=== PATIENT | female | born 2000 | race Caucasian/White ===

== ENCOUNTER 2022-09-07 15:52 | Outpatient (CLI) | payer OTHER ==
[2022-09-07 16:12] LABS: BASOPHILS % (AUTO) 0.5 %; EOSINOPHILS # (AUTO) 0.1 10^3/uL (0.0-0.7); EOSINOPHILS % (AUTO) 0.9 %; HGB - HEMOGLOBIN 13.6 g/dL (12.0-16.0); LYMPHOCYTES # (AUTO) 1.9 10^3/uL (1.5-3.5); LYMPHOCYTES % (AUTO) 22.4 %; MEAN CORPUSCULAR HEMOGLOBIN 30.4 pg (27.0-31.0); MEAN CORPUSCULAR HGB CONC 34.9 g/dL (32.0-36.0); MEAN CORPUSCULAR VOLUME 87.1 fL (81.0-99.0); MEAN PLATELET VOLUME 10.4 fL (7.9-10.8); MONOCYTES # (AUTO) 0.7 10^3/uL (0.0-1.0); MONOCYTES % (AUTO) 7.6 %; NEUTROPHILS # (AUTO) 5.9 10^3/uL (1.5-6.6); NEUTROPHILS % (AUTO) 68.3 %; PLT - PLATELET COUNT 292 10^3/uL (130-450); RED BLOOD COUNT 4.48 10^6/uL (4.20-5.40); RED CELL DISTRIBUTION WIDTH 11.6 % (12.0-15.0); WHITE BLOOD COUNT 8.7 x10^3/uL (4.8-10.8)
[2022-09-08 02:08] LABS: HCV AB Non Reactive (Non Reactive); HIV SCREEN 4TH GENERATION Non Reactive (Non Reactive)
[2022-09-08 06:10] LABS: HBsAG SCREEN Negative (Negative)
[2022-09-08 08:10] LABS: RPR Non Reactive (Non Reactive)
[2022-09-08 10:09] LABS: VARICELLA-ZOSTER AB IGG <135 index (Immune >165)
== END 2022-09-07 15:53 | disposition home or self-care (01) ==
LOC: LAB 15:52
PROVIDERS: ATTEND Nurse Practitioner Obstetrics & Gynecology
DX: Z36.89 Encounter for other specified antenatal screening (principal)
CPT/HCPCS: 36415; 85025; 86592; 86762; 86787; 86803; 86850; 86900; 86901; 87340; 87389

== ENCOUNTER 2022-11-26 07:09 | Outpatient (CLI) | payer OTHER ==
--- NOTE | 2022-11-26 14:27 | Ultrasound Report ---
PROCEDURE: OB Detailed Eval INDICATIONS: SUPERVISION OF OUTSIDE/PRIOR DATING DATA: Last menstrual period (LMP): 06/29/2022. LMP-based estimated date of delivery (LINDEN): 04/05/2023. First dating scan (date and location): 9023. Estimated date of delivery (LINDEN) from first dating scan: 04/09/2023. TECHNIQUE: Real-time scanning was performed of the fetus, with image documentation and biometric measurements. COMPARISON: None. FINDINGS: General: A single living intrauterine gestation is present. Presentation: Vertex Placenta: Placental position is posterior, without previa. Amniotic fluid index: 16.6 cm, within normal limits for gestational age. heart rate: 140 beats per minute. Maternal cervical canal: 3.1 cm long; normal length is 2.5 cm or more. biometrics: Biparietal diameter: 4.8 cm, 20 weeks and 5 days Head circumference: 18.7 cm, 21 weeks and 1 day Abdominal circumference: 16 cm, 21 weeks and 1 day Femur length: 3.5 cm, 21 weeks and 1 day Estimated gestational age from initial scan: 21 weeks and 3 days Composite gestational age from present scan: 20 weeks and 6 days Estimated weight and percentile: 403 g, 30.7 percentile Measurement variability in biometric dating: +/- 10 days from 12-20 weeks gestation, +/- 2 weeks from 20-30 weeks gestation, +/- 3 weeks at 30 weeks gestation or later. Anatomic survey: Neuro: Ventricles are normal at less than 10 mm. Cisterna magna is normal at 3-11 mm. Cerebellum is normal in size and morphology. Nuchal skin fold: Normal at less than 6 mm between 14 and 20 weeks gestational age. Face: Nose and lips, facial profile are normal. Spine: No evidence for spina bifida. Heart: 4-chambered heart is present, with normal ventricular outflow tracts. Incidentally noted lef t ventricle echogenic focus. Diaphragm: Diaphragm is intact. Stomach: Left-sided stomach is present. Kidneys: No hydronephrosis. Normal is less than 5 mm in 2nd trimester, less than 7 mm in 3rd trimester. Cord: 3 vessel cord has orthotopic insertion. Bladder: Normal in size. Extremities: All 4 extremities are visualized. IMPRESSION: Living intrauterine gestation at 21 weeks and 3 days. Biometry is concordant. EFW is at the 31st perc entile. Incidentally noted cardiac left ventricle echogenic focus possibly incidental. Please correlate with maternal risk factors for aneuploidy. Routine anatomic survey otherwise without significant abnormali ty. Reviewed by: Zuhair Roy MD on 11/26/2022 2:25 PM PDT Approved by: Zuhair Roy MD on 11/26/2022 2:25 PM PDT Station ID: [id number]
== END 2022-11-26 07:10 | disposition home or self-care (01) ==
LOC: DI 07:09
PROVIDERS: ATTEND Nurse Practitioner Obstetrics & Gynecology
DX: Z34.00 Encounter for supervision of normal first pregnancy, unspecified trimester (principal); Z36.89 Encounter for other specified antenatal screening

== ENCOUNTER 2022-12-22 09:13 | Outpatient (CLI) | payer OTHER ==
[2022-12-22 10:25] LABS: HCT - HEMATOCRIT 34.6 % (37.0-47.0); HGB - HEMOGLOBIN 11.7 g/dL (12.0-16.0); MEAN CORPUSCULAR HEMOGLOBIN 31.3 pg (27.0-31.0); MEAN CORPUSCULAR HGB CONC 33.8 g/dL (32.0-36.0); MEAN CORPUSCULAR VOLUME 92.5 fL (81.0-99.0); RED BLOOD COUNT 3.74 10^6/uL (4.20-5.40); RED CELL DISTRIBUTION WIDTH 12.1 % (12.0-15.0); WHITE BLOOD COUNT 9.5 x10^3/uL (4.8-10.8)
[2022-12-22 10:43] LABS: ALBUMIN 3.3 g/dL (3.2-5.5); ALBUMIN/GLOBULIN RATIO 1.4 (1.0-2.2); ALKALINE PHOSPHATASE 65 IU/L (42-121); ALT ALANINE AMINOTRANSFERASE 12 IU/L (10-60); AST ASPARTATE AMINOTRANSFERASE 13 IU/L (10-42); BILIRUBIN,TOTAL 0.3 mg/dL (0.2-1.0); BUN - BLOOD UREA NITROGEN 7 mg/dL (6-20); CALCIUM 9.2 mg/dL (8.5-10.3); CARBON DIOXIDE - CO2 26 mmol/L (21-32); CHLORIDE 105 mmol/L (101-111); CHOL/HDL RATIO 2.7 (<4.4); CHOLESTEROL 200 mg/dL; CREATININE 0.5 mg/dL (0.6-1.3); GFR - MDRD 157 (>89); GLUCOSE 110 mg/dL (74-104); GLUCOSE,1H PP 50GM DOSE 110 mg/dL; HDL CHOLESTEROL 73 mg/dL; LDL CHOLESTEROL,CALCULATED 88 mg/dL; LDL/HDL RATIO 1.2 (<4.4); POTASSIUM 3.6 mmol/L (3.5-4.5); SODIUM 137 mmol/L (135-145); TOTAL PROTEIN 5.6 g/dL (6.4-8.9); TRIGLYCERIDES 197 mg/dL (48-352); VLDL CHOLESTEROL 39 mg/dL
== END 2022-12-22 09:14 | disposition home or self-care (01) ==
LOC: LAB 09:13
PROVIDERS: ATTEND Nurse Practitioner Obstetrics & Gynecology
DX: Z01.818 Encounter for other preprocedural examination (principal)
CPT/HCPCS: 36415; 80053; 80061; 82950; 83721; 85027

== ENCOUNTER 2023-03-22 15:23 | Outpatient (CLI) | payer OTHER ==
[2023-03-22 15:39] LABS: BASOPHILS % (AUTO) 0.3 %; EOSINOPHILS # (AUTO) 0.1 10^3/uL (0.0-0.7); EOSINOPHILS % (AUTO) 0.7 %; HCT - HEMATOCRIT 38.7 % (37.0-47.0); HGB - HEMOGLOBIN 12.5 g/dL (12.0-16.0); LYMPHOCYTES % (AUTO) 19.7 %; MEAN CORPUSCULAR HEMOGLOBIN 28.6 pg (27.0-31.0); MEAN CORPUSCULAR HGB CONC 32.3 g/dL (32.0-36.0); MEAN CORPUSCULAR VOLUME 88.6 fL (81.0-99.0); MEAN PLATELET VOLUME 10.7 fL (7.9-10.8); MONOCYTES # (AUTO) 0.6 10^3/uL (0.0-1.0); MONOCYTES % (AUTO) 5.9 %; NEUTROPHILS # (AUTO) 7.4 10^3/uL (1.5-6.6); NEUTROPHILS % (AUTO) 72.9 %; PLT - PLATELET COUNT 303 10^3/uL (130-450); RED BLOOD COUNT 4.37 10^6/uL (4.20-5.40); RED CELL DISTRIBUTION WIDTH 13.2 % (12.0-15.0); WHITE BLOOD COUNT 10.1 x10^3/uL (4.8-10.8)
[2023-03-22 15:57] LABS: ALBUMIN 3.3 g/dL (3.2-5.5); ALBUMIN/GLOBULIN RATIO 1.1 (1.0-2.2); BILIRUBIN,TOTAL 0.4 mg/dL (0.2-1.0); CALCIUM 9.3 mg/dL (8.5-10.3); CREATININE 0.6 mg/dL (0.6-1.3); POTASSIUM 4.2 mmol/L (3.5-4.5); TOTAL PROTEIN 6.4 g/dL (6.4-8.9)
[2023-03-22 16:36] LABS: PROTEIN/CREATININE RATIO,URINE 0.3 (<=0.2)
== END 2023-03-22 15:24 | disposition home or self-care (01) ==
LOC: LAB 15:23
PROVIDERS: ATTEND Nurse Practitioner Obstetrics & Gynecology
DX: R03.0 Elevated blood-pressure reading, without diagnosis of hypertension (principal)
CPT/HCPCS: 36415; 80053; 82570; 84156; 85025

== ENCOUNTER 2023-03-23 15:41 | Inpatient (IN) | payer OTHER ==
[2023-03-23] MEDS ORDERED: OXYTOCIN 10 UNIT/ML VIAL IM PRN (17:05)
[2023-03-23] MEDS ORDERED: TRANEXAMIC ACID IN NACL 1,000 MG/100 ML BAG IV PRN (17:05)
[2023-03-23] MEDS ORDERED: CARBOPROST TROMETHAMINE 250 MCG/ML AMP IM PRN (17:05)
[2023-03-23] MEDS ORDERED: miSOPROStoL 200 MCG TABLET BC PRN (17:05)
[2023-03-23] MEDS ORDERED: SODIUM CHLORIDE FLUSH 0.9% 10 ML SYRINGE IVP PRN (17:05)
[2023-03-23] MEDS ORDERED: lidocaine 1% 20 ML MDV ID PRN (17:05)
[2023-03-23] MEDS ORDERED: METHYLERGONOVINE 0.2 MG/ML VIAL IM PRN (17:05)
[2023-03-23 17:10] LABS: BASOPHILS % (AUTO) 0.5 %; EOSINOPHILS # (AUTO) 0.1 10^3/uL (0.0-0.7); EOSINOPHILS % (AUTO) 0.6 %; HCT - HEMATOCRIT 36.2 % (37.0-47.0); HGB - HEMOGLOBIN 11.7 g/dL (12.0-16.0); LYMPHOCYTES # (AUTO) 1.6 10^3/uL (1.5-3.5); LYMPHOCYTES % (AUTO) 18.6 %; MEAN CORPUSCULAR HEMOGLOBIN 28.3 pg (27.0-31.0); MEAN CORPUSCULAR HGB CONC 32.3 g/dL (32.0-36.0); MEAN CORPUSCULAR VOLUME 87.7 fL (81.0-99.0); MEAN PLATELET VOLUME 10.7 fL (7.9-10.8); MONOCYTES # (AUTO) 0.7 10^3/uL (0.0-1.0); MONOCYTES % (AUTO) 7.4 %; NEUTROPHILS # (AUTO) 6.4 10^3/uL (1.5-6.6); NEUTROPHILS % (AUTO) 72.6 %; PLT - PLATELET COUNT 302 10^3/uL (130-450); RED BLOOD COUNT 4.13 10^6/uL (4.20-5.40); RED CELL DISTRIBUTION WIDTH 13.3 % (12.0-15.0); WHITE BLOOD COUNT 8.8 x10^3/uL (4.8-10.8)
--- NOTE | 2023-03-23 17:14 | HISTORY & PHYSICAL EXAMINATION ---
Admit History - Visit Reason Visit Reason: Other - : 1 Parity: 0 Premature: 0 Ectopic: 0 : 0 Care: positive: [facility] Risk/History: positive: None Complications This : positive: Pre-eclampsia Smoking Status: Never smoker - Mother's Labs Mother's Blood Type: positive: O Mother's RH: positive: Positive GBS: positive: Group B Step Negative Rubella Status: positive: Non-immune - HPI Diagnosis/Indication for NST: Other - NST Procedure FHR baseline 130s, moderate variability, + accels, no decels No contractions appreciated via tocometry Meds/Allgy - Allergies Allergies/Adverse Reactions: Allergies Allergy/AdvReac Type Severity Reaction Status Date / Time No Known Drug Allergies Allergy Verified 03/23/23 15:56 Review of Systems - Constitutional Constitutional: denies: Fatigue, Fever, Chills - Eyes Eyes: denies: Blurred vision, Spots in vision, Dipolpia - Cardiovascular Cariovascular: reports: Edema. denies: Irregular heart rate, Palpitations, Chest pain - Gastrointestinal Gastrointestinal: denies: Constipation, Diarrhea, Nausea, Vomiting - Genitourinary Genitourinary: denies: Dysuria - Integumentary Integumentary: denies: Rash, Pruritis - Neurological Neurological: reports: Headache - Psychiatric Psychiatric: reports: Depression, Anxiety, Other - Hematologic/Lymphatic Hematologic/Lymphatic: denies: Anemia - All Other Systems All Other Systems: reports: Reviewed and negative Physical - Abdominal Exam Contraction Frequency (min/apart): occasional/rare Contraction Intensity: positive: Mild Uterine Resting Tone: positive: Soft - Monitoring Heart Rate Baseline: 135 Strip Review: positive: Category I - Presentation Presentation: positive: Vertex - Vaginal Exam Membranes: positive: Membranes intact Dilation (in cm): fingertip Effacement (%): 30 Station: positive: -3 Cervical Position: positive: Posterior - Speculum Exam Speculum Exam Performed: positive: No Plan for Labor - Plan For Labor I expect patient to be DC'd or transferred within 96 hours.: Yes Plan for Labor: HPI: Hanna Back is a 23yo @ 38.1wks gestation by LMP c/w 10wk U/S who presents to [facility] for medical induction of labor secondary to preeclampsia without severe features. At 24 weeks she was noted to have blood pressure increased from her baseline which did not meet criteria for hypertension however a preeclampsia panel was ordered and normal. Through the duration of her her blood pressure remained 120-130s/70-80s until her routine visit yesterday at which time her blood pressure was 126/91. She presented for another blood pressure evaluation this morning at which time it was 132/92 and met criteria for preeclampsia secondary to her elevated protein/creatinine ratio of 0.3. Her other labs have remained WNL. Of note, her mom was diagnosed with severe preeclampsia. In additional to her preeclampsia diagnosis her has been complicated by mental health difficulties and she was diagnosed with bipolar II disorder by psychiatry at 16 weeks and started on once daily quetiapine. As her dosage was gradually increased she developed side effects of heart palpitations and dizziness. She then decreased her dosage and has remained stable without side effects on her current dosage of 75mg. She will be admitted to [facility] for medical induction of labor. She is supported by her Patel today. Dating criteria: LMP 06/29/2022 --> LINDEN 04/05/2023 Initial U/S @ 10.0wks c/w LMP dating Serial exams - agree maintenance advisor History: Term NSVB x 0. SAB x0. Denies history of gonorrhea, chlamydia, genital herpes, oral herpes or any other STI. Sexual partner does NOT have HSV (oral or genital). Medical Hx: anxiety, migraines, Bipolar II disorder Surgical Hx: L shoulder surgery 2019 Social Hx:Monogamous with male partner Patel. Stopped drinking alcohol due to p regnancy. Denies current use of tobacco, marijuana or other recreational drugs. Reports that she is safe in current relationship. Family Hx: Denies family history of congenital anomalies, Cystic Fibrosis or chromosomal abnormalities. HTN- mother; preeclampsia- mother; bipolar, anxiety/depression - mother. PGM is a twin Allergies: NKDA Medications: PNV, Quetiapine 75mg once daily course: O positive, antibody negative Rubella non-immune, varicella non-immune Hep B neg, Hep C neg HIV non-reactive, RPR non-reactive Initial U/S @ 10.0wks gestation c/w LMP dating NIPS - negative FAS WNL. Incidentally noted cardiac left ventricular echogenic focus. Posterior placenta, no previa. Size c/w dating (EFW 30.7%tile). 3VC. MAGGIE WNL. Glucola 110 Tdap - 02/04/2023 COVID vaccine - declined Influenza -declined RSV - declined GBS negative Physical exam: Normocephalic, atraumatic Heart RRR w/o M/G/R Lungs CTAB Abdomen gravid, soft, nontender EFW 3600g FHR baseline 130s, moderate variability, + accels, no decels Rare/occasional contraction appreciated via tocometry SVE fingertip/30/-3, posterior Vertex with intact membranes [place] cervical ripening balloon placed with 60cc intrauterine and 60cc vaginal balloons Bilateral LE's 2+ pitting edema bilaterally Mood is good Assessment: 23yo @ 38.1wks gestation by LMP c/w 10.0wk U/S Preeclampsia without severe features FHR Category I GBS negative Plan: Admit to [facility] for medical induction of labor secondary to preeclampsia without severe features. Pre-induction cervical ripening with cervical ripening balloon x 12 hours. Continuous monitoring. Jacuzzi PRN. Nitrous oxide PRN. Epidural per maternal request. Discussed with patient and her the criteria for transfer of care to physician care and they verbalized understanding and are in agreement with the above plan. They deny further questions or concerns at this time. Consult with information systems planner physician who is in agreement with the above plan.
[2023-03-23] MEDS ORDERED: LACTATED RINGERS 1,000 ML IV SCH (18:00)
[2023-03-23 18:03] LABS: ALBUMIN 3.1 g/dL (3.2-5.5); ALBUMIN/GLOBULIN RATIO 1.1 (1.0-2.2); BILIRUBIN,TOTAL 0.4 mg/dL (0.2-1.0); CALCIUM 9.5 mg/dL (8.5-10.3); CREATININE 0.6 mg/dL (0.6-1.3); TOTAL PROTEIN 5.9 g/dL (6.4-8.9)
[2023-03-23] MEDS: QUEtiapine 25 MG TABLET PO SCH (22:22)
--- NOTE | 2023-03-24 07:28 | PROVIDER PROGRESS NOTE ---
Labor Progress Note - Uterine Monitoring Uterine Monitoring Mode: positive: External toco Contraction Frequency (min/apart): occasional Contraction Intensity: positive: Mild Uterine Resting Tone: positive: Soft - Monitoring Monitor Mode: positive: External ultrasound Heart Rate Baseline: 145 Heart Rate Variability: positive: Moderate (6-25 bmp) Accelerations: positive: Present, 15x15 Decelerations: positive: None Strip Review: positive: Category I - Vaginal Exam Dilation (in cm): 1 Effacement (%): 50 Station: -3 Cervical Position: Posterior - Labor Progress Note Labor Progress Note/Additional Text: S: Patient was able to sleep intermittently throughout the night last night. She felt some cramping intermittently but it resolved around 0400 this morning. She denies headaches, visual disturbances, RUQ or epigastric pain. Her Patel is supportive at the bedside. O: FHR baseline 140s, moderate variability, + accels, no decels Contractions palpate mild occasionally with soft resting tone Cervical ripening balloon removed without difficulty SVE 1/50/-3, posterior, medium. Vertex. Intact membranes Has remained normotensive throughout the night A: 23yo @ 38.2wks gestation by LMP c/w 9wk U/S Pre-eclampsia without severe features FHR Category I GBS negative P: Initiate misoprostol 50mcg BC q 4 hours for cervical ripening. Continuous monitoring. Jacuzzi PRN, Nitrous oxide PRN. Encouraged ambulation and position changes. Epidural per maternal request. Anticipate .
[2023-03-24] MEDS: miSOPROStoL 100 MCG TABLET BC SCH ×2 (08:35→12:34)
[2023-03-24] MEDS: SODIUM CHLORIDE FLUSH 0.9% 10 ML SYRINGE IVP SCH (14:28)
--- NOTE | 2023-03-24 16:49 | PROVIDER PROGRESS NOTE ---
Labor Progress Note - Uterine Monitoring Uterine Monitoring Mode: positive: External toco Contraction Frequency (min/apart): 3-5 Contraction Intensity: positive: Mild to moderate Uterine Resting Tone: positive: Soft - Monitoring Monitor Mode: positive: External ultrasound Heart Rate Baseline: 150 Heart Rate Variability: positive: Moderate (6-25 bmp) Accelerations: positive: Present, 15x15 Decelerations: positive: None Strip Review: positive: Category I - Vaginal Exam Dilation (in cm): 4 Effacement (%): 70 Station: -2 Cervical Position: Midposition - Labor Progress Note Labor Progress Note/Additional Text: S: Patient is feeling more significant contractions. Continues to be able to talk through them but feels they are more manageable when she is up and around. She has been standing and the bedside and bouncing on her exercise ball. She is feeling very good about her progress thus far. She denies headaches, visual disturbances, RUQ or epigastric pain. Her is supportive at the bedside. O: FHR baseline 120s, moderate variability, + accels, no decels Contractions palpate moderate every 3-5 minutes with soft resting tone SVE 4/70/-2 and vertex with intact membranes S/p 2 doses of 50 mcg BC misoprostol BP has remained normotensive A: 23yo @ 38.2wks gestation by LMP c/w 10wk U/S Preelampsia w/o severe features GBS negative FHR Category I P: Discontinue cervical ripening at this time. Expectantly manage until contractions decrease in intensity and will initiate pitocin with titration per protocol at that time PRN. Intermittent heart rate monitoring. Repeat Preeclampsia labs at 1700. Encouraged ambulation and position changes. Jacuzzi PRN. Nitrous oxide PRN. Epidural per maternal request. Anticipate .
[2023-03-24 17:10] LABS: HCT - HEMATOCRIT 37.8 % (37.0-47.0); HGB - HEMOGLOBIN 12.2 g/dL (12.0-16.0); MEAN CORPUSCULAR HEMOGLOBIN 28.6 pg (27.0-31.0); MEAN CORPUSCULAR HGB CONC 32.3 g/dL (32.0-36.0); MEAN CORPUSCULAR VOLUME 88.5 fL (81.0-99.0); MEAN PLATELET VOLUME 10.7 fL (7.9-10.8); RED BLOOD COUNT 4.27 10^6/uL (4.20-5.40); RED CELL DISTRIBUTION WIDTH 13.4 % (12.0-15.0); WHITE BLOOD COUNT 10.2 x10^3/uL (4.8-10.8)
[2023-03-24 17:26] LABS: ALBUMIN 3.4 g/dL (3.2-5.5); ALBUMIN/GLOBULIN RATIO 1.1 (1.0-2.2); BILIRUBIN,TOTAL 0.3 mg/dL (0.2-1.0); CALCIUM 9.2 mg/dL (8.5-10.3); CREATININE 0.8 mg/dL (0.6-1.3); POTASSIUM 4.2 mmol/L (3.5-4.5); TOTAL PROTEIN 6.5 g/dL (6.4-8.9)
[2023-03-24] MEDS: LACTATED RINGERS 1,000 ML IV PRN ×3 (18:10→22:16)
[2023-03-24] MEDS ORDERED: ROPIVACAINE 0.2% 200 MG/100 ML BAG EP ONE (18:27)
[2023-03-24] MEDS ORDERED: ROPIVACAINE 0.2% 200 MG/100 ML BAG EP PRN (18:57)
[2023-03-24] MEDS ORDERED: ePHEDrine 50 MG/ML VIAL IVP PRN (18:57)
[2023-03-24] MEDS ORDERED: NALOXONE 0.4 MG/ML VIAL IVP PRN (18:57)
--- NOTE | 2023-03-24 18:57 | ANESTHESIA ---
Pre-Anesthesia VS, & Labs - Diagnosis active labor - Procedure vaginal delivery Vital Signs: Temp Pulse Resp BP Pulse Ox O2 Flow Rate 37 C 79 16 117/67 03/23/23 17:14 03/23/23 17:14 03/23/23 17:14 03/23/23 17:14 Height: 5 ft 5 in Weight (kg): 87.22 kg Body Mass Index: 32.0 BMI Classification: Obese - NPO Last Fluid Intake: clear liquids - Is Patient ?: Yes - Lab Results Current Lab Results: Laboratory Tests 03/24/23 17:01: WBC 10.2, RBC 4.27, Hgb 12.2, Hct 37.8, MCV 88.5, MCH 28.6, MCHC 32.3, RDW 13.4, Plt Count 302, MPV 10.7 03/24/23 17:01: Sodium 137, Potassium 4.2, Chloride 106, Carbon Dioxide 23, Anion Gap 8.0, BUN 10, Creatinine 0.8, Estimated GFR (MDRD) 91, Glucose 85, Calcium 9.2, Total Bilirubin 0.3, AST 15, ALT 7 L, Alkaline Phosphatase 184 H, Total Protein 6.5, Albumin 3.4, Globulin 3.1, Albumin/Globulin Ratio 1.1 03/23/23 17:00: Sodium 136, Potassium 4.0, Chloride 107, Carbon Dioxide 21, Anion Gap 8.0, BUN 8, Creatinine 0.6, Estimated GFR (MDRD) 126, Glucose 79, Calcium 9.5, Total Bilirubin 0.4, AST 15, ALT 6 L, Alkaline Phosphatase 162 H, Total Protein 5.9 L, Albumin 3.1 L, Globulin 2.8, Albumin/Globulin Ratio 1.1 03/23/23 17:00: WBC 8.8, RBC 4.13 L, Hgb 11.7 L, Hct 36.2 L, MCV 87.7, MCH 28.3, MCHC 32.3, RDW 13.3, Plt Count 302, MPV 10.7, Neut # (Auto) 6.4, Lymph # (Auto) 1.6, [place] # (Auto) 0.7, Eos # (Auto) 0.1, Baso # (Auto) 0.0, Absolute Nucleated RBC 0.00, Nucleated RBC % 0.0 03/23/23 17:00: Blood Type O POSITIVE, Antibody Screen NEGATIVE Lab results reviewed: Yes Fish Bones: 03/24/23 17:01 03/24/23 17:01 Home Medications and Allergies Active Medications Carboprost Tromethamine (Carboprost Tromethamine 250 Mcg/Ml Amp) 250 mcg IM Q15M PRN PRN Reason: Step 4: Hemorrhage protocol Stop: 03/28/23 17:07 Oxytocin/Sodium Chloride (Pitocin/Sodium Chloride) 500 mls @ 999 mls/hr IV PRN PRN; Protocol PRN Reason: POST- HEMORR PREVENTION Stop: 03/28/23 17:07 Tranexamic Acid (Tranexamic 1,000 Mg/100ml-Nacl) 1,000 mg in 100 mls @ 600 mls/hr IV .ONCE PRN PRN Reason: EBL >1200mL and within 3hr Stop: 03/28/23 17:07 Lactated Ringer's (Lr) 500 mls @ 999 mls/hr IV PRN PRN PRN Reason: NEEDED PER PROVIDER ORDERS Lidocaine HCl (Lidocaine 1% 20 Ml Mdv) 20 ml ID .ONCE PRN PRN Reason: PERINEAL REPAIR Stop: 03/28/23 17:07 Methylergonovine Maleate (Methylergonovine 0.2 Mg/Ml Vial) 0.2 mg IM .ONCE PRN PRN Reason: Step 2: Hemorrhage protocol Stop: 03/28/23 17:07 Misoprostol (Misoprostol 200 Mcg Tablet) 800 mcg BC .ONCE PRN PRN Reason: Step 3: Hemorrhage protocol Stop: 03/28/23 17:07 Misoprostol (Misoprostol 100 Mcg Tablet) 50 mcg BC Q4H [facility] Last Admin: 03/24/23 12:34 Dose: 50 mcg Oxytocin (Oxytocin 10 Unit/Ml Vial) 10 unit IM .ONCE PRN PRN Reason: Step one: If no IV access Stop: 03/28/23 17:07 Quetiapine Fumarate (Quetiapine 25 Mg Tablet) 75 mg PO QPM [facility] Last Admin: 03/23/23 22:22 Dose: 75 mg Sodium Chloride (Sodium Chloride Flush 0.9% 10 Ml Syringe) 10 ml IVP 0100,0900,1700 [facility] Last Admin: 03/24/23 14:28 Dose: 10 ml Sodium Chloride (Sodium Chloride Flush 0.9% 10 Ml Syringe) 10 ml IVP PRN PRN PRN Reason: NEEDED PER PROVIDER ORDERS Allergies/Adverse Reactions: Allergies Allergy/AdvReac Type Severity Reaction Status Date / Time No Known Drug Allergies Allergy Verified 03/23/23 15:56 Anes History & Medical History - Anesthetic History Anesthesia Complications: reports: No previous complications - Medical History Cardiovascular: reports: None Pulmonary: reports: None Gastrointestinal: reports: None Urinary: reports: None Neuro: reports: None Musculoskeletal: reports: Scoliosis Endocrine/Autoimmune: reports: None Blood Disorders: reports: None Skin: reports: None Smoking Status: Never smoker Psychosocial: reports: No issues indicated History of Cancer?: No - Surgical History Orthopedic: reports: Other (shoulder scope) - Obstetrical History : 1 Parity: 0 Events: reports: None Complications: reports: Pre-eclampsia (without severe features) Exam General: Alert, Oriented x3, Cooperative, No acute distress Dental: WNL Mouth Openin Fingerbreadth Neck Mobility: Normal Mallampati classification: II Thyromental Distance: 4-6 cm Mental/Cognitive Status: Alert/Oriented X3, Normal for patient Plan Anesthesia Type: Epidural Consent for Procedure(s) Verified and Reviewed: Yes Code Status: Attempt Resuscitation ASA classification: 2-Mild systemic disease Is this case an emergency?: No
[2023-03-24] MEDS: QUEtiapine 25 MG TABLET PO SCH (22:15)
--- NOTE | 2023-03-24 22:28 | PROVIDER PROGRESS NOTE ---
Labor Progress Note - Uterine Monitoring Uterine Monitoring Mode: positive: External toco Contraction Frequency (min/apart): 2-3 Contraction Intensity: positive: Strong Uterine Resting Tone: positive: Soft - Monitoring Monitor Mode: positive: External ultrasound Heart Rate Baseline: 130s Heart Rate Variability: positive: Moderate (6-25 bmp) Accelerations: positive: Present, 15x15 Decelerations: positive: None Strip Review: positive: Category I - Vaginal Exam Dilation (in cm): 8 Effacement (%): 100 Station: 1 - Labor Progress Note Labor Progress Note/Additional Text: S: Patient comfortable with epidural. She is in great spirits and is very pleased with the progress she has made throughout the day today. She denies FULLER, visual disturbances, RUQ or epigastric pain. Her remains supportive at the bedside. O: FHR baseline 130s, moderate variability, + accels, no decels Contractions palpate strong every 2-3 minutes with soft resting tone SVE 8/100/+1 and vertex AROM @ 1000 noted to be a moderate amount of clear fluid BP has remained normotensive CMP WNL CBC WNL A: 23yo @ 38.1wks gestation by LMP c/w 9.6wk U/S Preeclampsia w/o severe features Active labor GBS negative FHR Category I Plan: Continuous monitoring. Continue expectant management. Maintain epidural for pain management Encouraged rotation in bed on peanut ball. Anticipate .
[2023-03-25] MEDS: OXYTOCIN/SODIUM CHLORIDE 500 ML IV PRN ×2 (00:12→01:02)
[2023-03-25] MEDS ORDERED: WITCH HAZEL/GLYCERIN 1 PAD TOP PRN (00:51)
[2023-03-25] MEDS ORDERED: HYDROCORTISONE 1% CREAM 28 GM TUBE PR PRN (00:51)
--- NOTE | 2023-03-25 01:09 | DELIVERY NOTE ---
Delivery Note - Labor Labor: positive: Augmented by ARM - Infant Delivery Method Delivery Method: positive: Spontaneous vaginal delivery - Cervical Ripening Method Cervical Ripening Method: positive: Balloon device, Misoprostil - Presentation Presentation: positive: Vertex, JOEY - left occiput anterior - Nuchal Cord Nuchal Cord: positive: None - Amniotic Fluid Description Amniotic Fluid Description: positive: Clear - Episiotomy Type Episiotomy Type: positive: None - Laceration Laceration: positive: None - Delivery Outcome Delivery Outcome: positive: Livebirth - [place]: positive: Placed in direct skin contact with mother, Bulb syringe, Stimulated, Warmed, [place] used, Warmer used sex: positive: Male - Cord Cord: positive: 3 vessels - Placenta Placenta: positive: Intact, Spontaneous - Estimated Blood Loss Estimated Blood Loss (in cc): 200 - Post Delivery Events Post Delivery Events: positive: No post delivery events - Delivery Comments (Free Text/Narrative) Delivery Comments (Free Text/Narrative): Hanna is a 23yo @ 38.3 wks gestation by LMP c/w 9.6wk U/S presented to [facility] for medical induction of labor secondary to preeclampsia without severe features on 03/23/2023 @ 1600. Cervix was closed/thick/high, posterior and vertex with intact membranes. A franco cervical ripening balloon was placed and remained x 12 hours. At removal cervix was 1/50/-3 and she received 2 doses of 50mcg BC misoprostol given 4 hours apart for effective pre-induction cervical ripening. She entered spontaneous active labor and received an epidural per her request. FHR pattern demonstrated Category I pattern throughout labor. Normal labor course. AROM occurred at 2140 and was found to be a moderate amount of clear fluid. She progressed to c/c/+1 @ 2306 with onset of active pushing at 2329. : Normal SVB of viable male on 03/25/2023 @ 0004. No nuchal cord. The was placed on maternal abdomen, stimulated, dried, and placed skin to skin. 's were 7/9 at 1 and 5 minutes respectively. Pitocin administered via IV for hemostasis. The umbilical cord was allowed to stop pulsating at which time it was doubly clamped by CNM and cut by FOB. 3VC. Cord blood was obtained. Fundal massage and gentle cord traction applied for active management of the third stage. Placenta delivered spontaneously and intact @ 0011. EBL 200mL. Fourth stage: Uterine fundus firm and there is no excessive bleeding. The perineum, vagina, and cervix were inspected and found to be intact. There was noted to be a minor left labia abrasion which was hemostatic and left unrepaired. initiated. Family bonding well. Both mother and baby were left in stable condition.
[2023-03-25] MEDS ORDERED: ONDANSETRON 4 MG/2 ML VIAL IVP PRN (01:56)
[2023-03-25] MEDS: ACETAMINOPHEN 500 MG TABLET PO SCH ×3 (02:25→20:14)
[2023-03-25] MEDS: IBUPROFEN 800 MG TABLET PO SCH ×3 (02:25→18:13)
[2023-03-25] MEDS ORDERED: DOCUSATE SODIUM 100 MG CAPSULE PO SCH (09:00)
--- NOTE | 2023-03-25 17:28 | PROVIDER PROGRESS NOTE ---
Subjective - Subjective Subjective: S: Bonding well with baby. without difficulty. Her pain is well controlled with oral medications. She is tired but does feel like she was able to get some rest last night. Her bleeding is decreased and is light. She denies headaches, visual disturbances, RUQ or epigastric pain. Her Patel remains supportive at the bedside. O: Heart RRR w/o M/G/R, lungs CTAB, abdomen soft and nontender with fundus firm at U, perineum intact, light lochia rubra, bilateral LE's trace edema. A: 23yo -->P1 day of delivery Normal recovery P: Continue routine care and medications. Evaluate for discharge home tomorrow. Objective - Vital Signs/Intake & Output Vital Signs: Vital Signs x48h Temp Pulse Resp BP Pulse Ox 03/25/23 14:37 36.6 C 84 21 110/79 99 Intake & Output: Intake & Output 03/22/23 03/23/23 03/24/23 03/25/23 23:59 23:59 23:59 23:59 Intake Total 1450 1500 Output Total 50 1120 Balance 1400 380 - Lab Results Fish Bones: 03/24/23 17:01 03/24/23 17:01 Other Labs: Lab Results x24hrs 03/24/23 Range/Units 17:01 Sodium 137 (135-145) mmol/L Potassium 4.2 (3.5-4.5) mmol/L Chloride 106 (101-111) mmol/L Carbon Dioxide 23 (21-32) mmol/L Anion Gap 8.0 (6-13) BUN 10 (6-20) mg/dL Creatinine 0.8 (0.6-1.3) mg/dL Estimated GFR (MDRD) 91 (>89) Glucose 85 (74-104) mg/dL Calcium 9.2 (8.5-10.3) mg/dL Total Bilirubin 0.3 (0.2-1.0) mg/dL AST 15 (10-42) IU/L ALT 7 L (10-60) IU/L Alkaline Phosphatase 184 H (42-121) IU/L Total Protein 6.5 (6.4-8.9) g/dL Albumin 3.4 (3.2-5.5) g/dL Globulin 3.1 (2.1-4.2) g/dL Albumin/Globulin Ratio 1.1 (1.0-2.2)
[2023-03-25] MEDS: QUEtiapine 25 MG TABLET PO SCH (20:30)
[2023-03-26] MEDS: IBUPROFEN 800 MG TABLET PO SCH ×2 (00:09→07:12)
[2023-03-26] MEDS: ACETAMINOPHEN 500 MG TABLET PO SCH (04:09)
[2023-03-26 04:37] VITALS: O2SAT 100
[2023-03-26 10:16] VITALS: BP 126/84
--- NOTE | 2023-03-26 12:34 | Discharge Plan ---
Discharge Plan Problem Reviewed?: Yes Disposition: Home, Self Care Condition: Good Diet: Regular Activity Restrictions: No Restrictions Shower Restrictions: No Driving Restrictions: No Weight Bearing: Full Weight Instruction Topics: Vaginal After, Breastfeed Holds, Nutrition , Self Care No Smoking: If you smoke, Please STOP! Call for help. Follow-up with: Jennifer García CNM, CESAR [Provider Admit Priv/Credential] -
[2023-03-26] MEDS ORDERED: MEASLES,MUMPS & RUBELLA VACC 0.5 ML VIAL SUBQ ONE (12:40)
[2023-03-26] MEDS ORDERED: VARICELLA VACCINE LIVE/PF 1,350 UNIT/0.5 ML VIAL SUBQ ONE (12:40)
--- NOTE | 2023-03-26 12:47 | DISCHARGE SUMMARY ---
Discharge Summary Condition at Discharge: Good Discharge Disposition: 01 Home, Self Care - HOSPITAL COURSE Hospital Course: Date of Admission: 03/23/2023 Date of Discharge: 03/26/2023 Diagnosis on Admission: 1. 23yo @ 38.1wks gestation by LMP c/w 10.0wk U/S 2. Preeclampsia without severe features 3. FHR Category I 4. GBS negative Date of Discharge: 1. 23yo s/p TSVB viable male infant 2. 3. Normal delivery 4. Rubella non-immune 5. varicella non-immune Brief history: SHe is a patient of [facility] who presented on 03/23/2023 for medical induction of labor secondary to pre-eclampsia without severe features. Cervix was closed/thick/high and posterior. She had a franco cervical ripening balloon x 12 hours followed by 2 doses of 50mcg BC misoprostol given 4 hours apart for effective pre-induction cervical ripening. She was noted to be in spontaneous, active labor at that time and received an epidural per her request. AROM occurred at 2140 and was noted to be a moderate amount of clear fluid. Pt progressed to spontaneously deliver a viable male on 03/25/2023 @ 0004 over intact perineum. 's were 7/9 at 1 and 5 minutes respectively. EBl 200mL. She has been doing well in her course. She is ambulating and tolerating a regular diet. She is urinating without difficulty and her lochia is normal. Her pain is well controlled with oral medications. She is without difficulty and she is bonding well with her baby. She is noted to be non-immune to both rubella and varicella and received vaccinations prior to discharge. She has been given instructions to continue taking her vitmain while and to continue taking ibuprofen and tylenol over the counter as needed for pain management. She intends to follow up with myself in 1 week for routine visit or sooner if needed. She has been given precautions to call if she has any worsening fevers, chills, abdominal pain, increased vaginal bleeding or foul smelling vaginal discharge. Physical exam: Normocephalic, atraumatic. Heart RRR w/o M/G/R, lungs CTAB, abdomen soft and notender with fundus firm at U-1, perineum intact, light lochia rubra, bilateral LE's trace edema. Mood is good. - ALLERGIES Allergies/Adverse Reactions: Allergies Allergy/AdvReac Type Severity Reaction Status Date / Time No Known Drug Allergies Allergy Verified 03/23/23 15:56 - LABS Result Diagrams: 03/24/23 17:01 03/24/23 17:01
--- NOTE | 2023-03-26 14:11 | Labor Flowsheet ---
Labor Flowsheet Datetime Report Generated by CPN: 03/26/2023 14:11 Datetime: 03/26/2023 10:01 VITAL SIGNS NBP Sys/Annette/Mean (mmHg): 124 : 76 : 86 Pulse: 82 Datetime: 03/25/2023 14:19 SpO2 (%): 99 Datetime: 03/25/2023 03:02 Respirations: 22 Temperature (C): 38.2 (Annotations: Temp elevated after giving Misoprostol 800mcg BC for intermitte nt boggy lower uterus - fundus cont to remain firm to palpation) Temperature Route: Oral PAIN Pain Scale: 3 Pain Presence: Intermittent Pain Type: Cramping Pain Location: Abdomen Pain Goal: 4 Pain Relief Measures: Pain Medication Given; Comfort Measures Datetime: 03/25/2023 01:45 Pain Assessment Comments: Emesis - 170ml diegested food Datetime: 03/25/2023 01:16 Stage of : Recovery Datetime: 03/25/2023 00:12 Medication Comments: pitocin bolus Datetime: 03/25/2023 00:11 Contraction Comments: Placenta spont delivered Datetime: 03/25/2023 00:04 Comments: Pushing Progress: with Pushing; Pushing Effectively with Contractions Stage 2 Comments: Delivery Datetime: 03/25/2023 00:00 UTERINE ACTIVITY Monitor Mode: External Frequency (min): 1.5-2.5 Quality: Strong Duration (sec): 60-80 Pattern: Normal: <= 5 Contractions in 10 Minutes Resting Tone (Palpate): Relaxed ASSESSMENT A Monitor Mode: Telemetry FHR Baseline Rate : 145 FHR Baseline Changes: No Baseline Change Variability: Moderate 6-25 bpm Accelerations: 10X10 Decelerations: Variable (Annotations: Variables to 80-90s with pushing; baby is now) Actions for Decelerations: Provider at pushing with patient; R hip wedge Category: Category II STAGE 2 Pushing: Coached on Pushing; Urge to Push Pushing Position: Pushing with Contractions; Pushing Lithotomy LaborFlag: Labor Datetime: 03/24/2023 23:28 Patient Position/Activity: Left Tilt Comfort Measures: Coaching; Family Support I/O Interventions: De Guzman Discontinued Provider Reviewed Strip: Yes Strip Reviewed by: VANESSA García Patient Care Comments: Instructed on pushing by provider Datetime: 03/24/2023 23:27 Labor/Induction: Pushing Methods Datetime: 03/24/2023 23:22 COMMUNICATION Communication: Provider at Bedside Provider Notified (Name): Ricky Communication Comments: ready to push Datetime: 03/24/2023 23:08 Station: 2 Exam by: RNC Spear Datetime: 03/24/2023 23:06 VAGINAL EXAM Dilatation (cm): 10.0 Effacement (%): 100 Datetime: 03/24/2023 22:30 Pain Coping: Talking Through Contractions Anesthesia Level Check: T7 Datetime: 03/24/2023 22:14 PATIENT CARE IV/Blood Work: New IV Bag Hung Datetime: 03/24/2023 21:40 Membrane Status: Ruptured Membranes Rupture Method: Artificial Amniotic Fluid Color: Clear Amniotic Fluid Amount: Moderate Amniotic Fluid Odor: Normal Vaginal Bleeding: Normal Show Pool: Positive Cervix, Consistency: Soft Cervix, Position: Anterior Datetime: 03/24/2023 21:33 Notification Reason: Labor Status; Uterine Activity; Other Datetime: 03/24/2023 20:45 Vital Sign Comments: BP recheck, lower arm bent Datetime: 03/24/2023 20:30 MATERNAL ASSESSMENT Level of Consciousness: Alert Headache: Denies Breath Sounds, Left: Clear and Equal Breath Sounds, Right: Clear and Equal Nausea/Vomiting: Denies RUQ Epigastric Pain: Denies Maternal Comments: slight limitation of mobility of LEs due to epidural Datetime: 03/24/2023 19:47 Monitor Interventions for UA: [place] Adjusted Datetime: 03/24/2023 19:42 Vaginal Exam Comments: membranes intact Datetime: 03/24/2023 18:50 Epidural Procedure Other: Pump Started Datetime: 03/24/2023 18:45 Epidural Procedure: Loading Dose Datetime: 03/24/2023 18:42 ANESTHESIA Anesthesia Plans: Epidural Datetime: 03/24/2023 18:34 Epidural Positioning: Sitting Datetime: 03/24/2023 18:30 Anesthesia Comments: A. Lonnie here at the bedside, consent signed Datetime: 03/24/2023 12:34 MEDICATIONS Cervical Ripening Agents: Cytotec @ (Annotations: 50mcg ) Datetime: 03/24/2023 07:28 TEACHING Instructional Method: Verbal Plan of Care: Plan of Care Discussed; Induction Medications: Cervical Ripening Datetime: 03/23/2023 23:37 Monitor Interventions for FHR: Ultrasound Adjusted Datetime: 03/23/2023 23:30 Unit Routine: Unit Personnel Pain Management: Pain Scale/Goals; Comfort Measures Datetime: 03/23/2023 20:22 DTR's/Clonus: DTRs 1+ Datetime: 03/23/2023 17:51 Membranes Ruptured Date/Time: 03/24/2023 21:40
== END 2023-03-26 13:30 | disposition home or self-care (01) | DRG 806 ==
LOC: FBP 15:41 → WFO 15:41 → FBP 16:30
PROVIDERS: ADMIT Nurse Practitioner Obstetrics & Gynecology; ATTEND Nurse Practitioner Obstetrics & Gynecology
PROC: 0U7C7ZZ Dilation of Cervix, Via Natural or Artificial Opening (ICD-10-PCS; principal; 2023-03-23)
PROC: 3E0DXGC Introduction of Other Therapeutic Substance into Mouth and Pharynx, External Approach (ICD-10-PCS; 2023-03-24)
PROC: 10907ZC Drainage of Amniotic Fluid, Therapeutic from Products of Conception, Via Natural or Artificial Opening (ICD-10-PCS; 2023-03-24)
PROC: 10E0XZZ Delivery of Products of Conception, External Approach (ICD-10-PCS; 2023-03-25)
DX: O14.04 Mild to moderate pre-eclampsia, complicating childbirth (principal); F31.81 Bipolar II disorder; Z37.0 Single live birth; Z3A.38 38 weeks gestation of pregnancy; O99.344 Other mental disorders complicating childbirth; Z23 Encounter for immunization; Z79.899 Other long term (current) drug therapy
CPT/HCPCS: 36415; 59409; 80053; 85025; 85027; 86850; 86900; 86901; 90716; A9270; J7120